=== PATIENT | male | born 1995 | race Two or more races ===

== ENCOUNTER 2019-04-04 00:41 | Emergency (ER) | payer SELFPAY ==
[~2019-04-04] VITALS: Ht 180.3 cm; Wt 86.2 kg
[2019-04-04 01:08] VITALS: BP 131/79
== END 2019-04-04 02:52 | disposition left against medical advice (07) ==
LOC: ER 00:46
DX: S61.213A Laceration without foreign body of left middle finger without damage to nail, initial encounter (principal); Z53.21 Procedure and treatment not carried out due to patient leaving prior to being seen by health care provider; X58.XXXA Exposure to other specified factors, initial encounter; Y93.89 Activity, other specified; Y99.8 Other external cause status; Y92.89 Other specified places as the place of occurrence of the external cause